=== PATIENT | female | born 1955 | race Caucasian/White ===

== ENCOUNTER 2021-02-07 08:32 | Outpatient (CLI) | payer OTHER ==
[~2021-02-07 08:32] MED LIST: DEPAKOTE ER250 MG; ENALAPRIL MALEA20 MG; METFORMIN HCL1000 M1; METOPROLOL SUC100 MG; NEURONTIN300 MG; TRILEPTAL150 MG; TUSSI PRES-B L120 M1 PO; ZITHROMAX TRI-500 MG PO
== END 2021-02-07 08:34 | disposition home or self-care (01) ==
LOC: SONOGRAMA 08:32
PROVIDERS: ATTEND Pathology Anatomic Pathology
DX: D34 Benign neoplasm of thyroid gland (principal); E04.2 Nontoxic multinodular goiter

== ENCOUNTER 2023-08-13 07:34 | Outpatient (CLI) | payer OTHER | END 2023-08-13 07:38 | disposition home or self-care (01) | LOC: SONOGRAMA 07:34 | PROVIDERS: ATTEND Pathology Anatomic Pathology & Clinical Pathology | DX: D34 Benign neoplasm of thyroid gland (principal); E04.9 Nontoxic goiter, unspecified ==